=== PATIENT | male | born 1970 | race Caucasian/White ===

== ENCOUNTER → 2020-06-12 09:33 | Outpatient (CLI) | payer SELFPAY ==
--- NOTE | ~2020-06-12 | MR_ITS ---
EXAMINATION: MR cervical spine wo con DATE: 06/12/2020 11:02 INDICATION: Left-sided cervical radiculopathy. Left arm tingling, numbness, and pain. TECHNIQUE: Magnetic resonance imaging (MRI) of the cervical spine was performed without intravenous c ontrast. Sequences included sagittal T2-weighted FSE, sagittal STIR FSE, sagittal T1-weighted FSE, ax ial MERGE, and axial T2-weighted FSE. COMPARISON: None FINDINGS: Bone alignment is normal. Vertebral body heights are normal. There is mildly decreased disc height at C4-C5, C5-C6, and C6-C7. The spinal cord signal intensity is normal. The following disc le vels are specifically discussed: C2-C3: The disc does not extend beyond the endplate margin. There is no uncovertebral joint osteoarth ritis. There is mild right and moderate left facet joint osteoarthritis. There is mild left neural fo raminal stenosis. There is no central canal stenosis. C3-C4: There is a central extrusion. There is mild left uncovertebral joint osteoarthritis. There is mild right and moderate left facet joint osteoarthritis. There is moderate left neural foraminal sten osis. There is mild central canal stenosis with ventral indentation of the spinal cord. C4-C5: The disc is bulging. There is mild left uncovertebral joint osteoarthritis. There is mild righ t and moderate left facet joint osteoarthritis. There is moderate left neural foraminal stenosis. The re is mild central canal stenosis with ventral indentation of the spinal cord. C5-C6: The disc is bulging. There is moderate right and severe left uncovertebral joint osteoarthriti s. There is mild bilateral facet joint osteoarthritis. There is mild right and severe left neural for aminal stenosis. There is mild central canal stenosis. C6-C7: There is a right central protrusion. There is mild left uncovertebral joint osteoarthritis. Th ere is mild bilateral facet joint osteoarthritis. There is mild left neural foraminal stenosis. There is mild central canal stenosis. C7-T1: The disc does not extend beyond the endplate margin. There is no uncovertebral joint osteoarth ritis. There is severe bilateral facet joint osteoarthritis. There is mild bilateral neural foraminal stenosis. There is no central canal stenosis. IMPRESSION: 1. Moderate cervical spondylosis. Reviewed, dictated and finalized at location A. [facility] [employer]
== END ==
PROVIDERS: Visit Provider Nurse Practitioner Family
DX: M79.602 Pain in left arm (principal); M47.22 Other spondylosis with radiculopathy, cervical region
CPT/HCPCS: 72141